=== PATIENT | female | born 1950 | race Caucasian/White ===

== ENCOUNTER 2017-04-11 01:55 | Observation (INO) | payer OTHER ==
[~2017-04-11] VITALS: Ht 167.6 cm; Wt 72.6 kg
--- NOTE | 2017-04-11 02:03 | NUR ---
PT STATES SHE WOKE UP WITH HEARTBURN, WHENSHE GOT UP SHE BECAME DIZZY AND DIAPHORETIC,FEELS BETTER NOW
--- NOTE | 2017-04-11 02:05 | NUR ---
EVALUATED BY DR TSAI
--- NOTE | 2017-04-11 02:06 | ED CARDIAC/CP/PALPITATIONS ---
History of Present Illness General Chief Complaint: Abdominal Pain/Flank Pain Stated Complaint: ABD PAIN Source: patient Exam Limitations: no limitations Vital Signs & Intake/Output Vital Signs & Intake/Output Vital Signs Date Time Temp Pulse Resp B/P B/P Pulse O2 O2 Flow FiO2 Mean Ox Delivery Rate 04/11 0209 97 Room Air 04/11 0205 97.1 60 18 144/68 97 Room Air Allergies Coded Allergies: No Known Allergies (04/11/17) Reconcile Medications No Known Home Medications Triage Note: PT STATES SHE WOKE UP WITH HEARTBURN, WHENSHE GOT UP SHE BECAME DIZZY AND DIAPHORETIC,FEELS BETTER NOW Triage Nurses Notes Reviewed? yes Onset: Gradual Duration: hour(s):, waxing and waning Timing: recent history Quality/Severity: moderate Location: central Radiation: shoulders Activities at Onset: rest Prior Chest Pain/Card Workup: no prior chest pain Modifying Factors: Improves With: rest. Nitro Today/Relief: no nitro taken today Aspirin Today: 325 mg x 1, provided by ED Associated Symptoms: diaphoresis, dizziness, shortness of breath, weakness HPI: 66-year-old woman prior good health presents with three-hour history of diaphoresis substernal chest pressure radiating to both shoulders and up into her neck. She states that when she stood up she got profoundly weak and lightheaded. She never had these symptoms before she has no history of reflux. She notes that she ate a few chips prior to going to bed. Symptoms waxed and waned for a period of 3 hours and did not rhina. She states that at the worst the symptoms were 8 out of 10. At present it is 2 out of 10. She called 911 for further evaluation. Past History Travel History Traveled to [place] past 21 day No Medical History Any Pertinent Medical History? see below for history Neurological: NONE EENT: NONE Cardiovascular: NONE Respiratory: NONE Gastrointestinal: NONE Hepatic: NONE Renal: NONE Musculoskeletal: NONE Psychiatric: NONE Endocrine: NONE Blood Disorders: NONE Cancer(s): NONE Surgical History Surgical History: none Psychosocial History What is your primary language Yoruba Tobacco Use: Never used Family History Hx Contributory? No Review of Systems Review of Systems Constitutional: Reports: no symptoms. EENTM: Reports: no symptoms. Respiratory: Reports: no symptoms. Cardiovascular: Reports: no symptoms. GI: Reports: no symptoms. Genitourinary: Reports: no symptoms. Musculoskeletal: Reports: no symptoms. Skin: Reports: no symptoms. Neurological/Psychological: Reports: no symptoms. Hematologic/Endocrine: Reports: no symptoms. Immunologic/Allergic: Reports: no symptoms. All Other Systems: Reviewed and Negative Physical Exam Physical Exam General Appearance: well developed/nourished, mild distress Head: atraumatic, normal appearance Eyes: Bilateral: normal appearance. Ears, Nose, Throat: normal pharynx, normal ENT inspection Neck: normal inspection, supple, full range of motion Respiratory: normal breath sounds, chest non-tender, no respiratory distress, quiet respiration, lungs clear Cardiovascular: regular rate/rhythm Gastrointestinal: normal bowel sounds, soft, non-tender, no organomegaly Back: normal inspection, normal range of motion Extremities: normal inspection, normal capillary refill, normal range of motion, no edema Neurologic/Psych: no motor/sensory deficits, awake, alert, oriented x 3 Skin: intact, normal color, warm/dry Core Measures ACS in differential dx? Yes ASA ordered for poss ACS? Yes-ordered Severe Sepsis Present: No Septic Shock Present: No Progress Differential Diagnosis: AMI, CHF/pulm edema, musculoskeletal pain, unstable angina Plan of Care: Orders Procedure Date/time Status Nothing by Mouth 04/11 B Active Patient Data 04/11 0352 Active Saline Lock 04/[address] in observation 04/11 0347 Active Misc Message 04/11 0347 Active ED Holding Orders 04/11 0347 Active Vital Signs 04/11 0347 Active Code Status 04/11 0347 Active TROPONIN LEVEL 04/11 0206 Complete PARTIAL THROMBOPLASTIN TIME 04/11 0206 Complete PROTHROMBIN TIME 04/11 0206 Complete D-DIMER 04/11 0206 Complete COMPREHENSIVE METABOLIC PANEL 04/11 0206 Complete CBC WITHOUT DIFFERENTIAL 04/11 0206 Complete EKG 04/11 0157 Active Laboratory Tests 04/11/17 0211: Anion Gap 10, Estimated GFR > 60, BUN/Creatinine Ratio 16.3, Glucose 105 H, Calcium 9.1, Total Bilirubin 0.6, AST 28, ALT 35, Alkaline Phosphatase 136 H, Troponin I < 0.01, Total Protein 6.8, Albumin 4.4, Globulin 2.4, Albumin/ Globulin Ratio 1.8, PT 9.8, INR 0.93, APTT 30, D-Dimer High Sensitivty < 200, CBC w Diff NO MAN DIFF REQ, RBC 4.00 L, MCV 94.6, MCH 31.7 H, RDW 13.6, MPV 8.9, Gran % 46.5, Lymphocytes % 40.2, Monocytes % 10.2 H, Eosinophils % 2.6, Basophils % 0.5, Absolute Granulocytes 2.5, Absolute Lymphocytes 2.2, Absolute Monocytes 0.5, Absolute Eosinophils 0.1, Absolute Basophils 0, PUBS MCHC 33.5 Diagnostic Imaging: Viewed by Me: Radiology Read. Discussed w/RAD: Radiology Read. CXR Impression: no acute abnormality, no infiltrates, normal size heart, normal mediastinum Initial ED EKG: normal axis, normal intervals, normal p-waves, normal QRS complex, normal sinus rhythm Comments: PATIENT: DAHIANA HOUGH PRESENT AGE: 66 PATIENT ACCOUNT NO: [id number] : 50 LOCATION: [facility] ORDERING PHYSICIAN: WILLIAMS TSAI MD SERVICE DATE: 04/11/17 EXAM TYPE: RAD - XRY-PORTABLE CHEST XRAY EXAMINATION: XR PORTABLE CHEST CLINICAL INFORMATION: Chest pain COMPARISON: None TECHNIQUE: Portable frontal view of the chest was obtained. FINDINGS: The lungs are mildly hypoinflated, with bronchovascular crowding suspected at the lung bases. No focal consolidation is seen. No evidence of pneumothorax, pleural effusion, or pulmonary edema. The cardiomediastinal contour is unremarkable. No acute osseous findings are seen. IMPRESSION: No acute cardiopulmonary findings. DICTATED BY: CARIDAD BROWN MD DATE/TIME DICTATED:04/11/17329 [facility] FLOOR:[facility] DATE/TIME TRANSCRIBED:04/11/17329 CONFIDENTIAL, DO NOT COPY WITHOUT APPROPRIATE AUTHORIZATION. <Electronically signed in Other Vendor System> SIGNED BY: CARIDAD BROWN MD 04/11/17333 Departure Departure Disposition: STILL A PATIENT Condition: Stable Clinical Impression Primary Impression: Chest pain Referrals: SATINDER SCHWARTZ MD (PCP/Family) Departure Forms: Customer Survey General Discharge Information Prescriptions: Current Visit Scripts No Known Home Medications Observation Note Spoke With: CHARISSA STUBBS MD Physician Advisor Notified: CANDACE OLVERA DO Place Patient In: Non-ED OBS Care Area Rationale for Observation: My rational for observation is as follows . PT WITH CHEST PAIN, HIGHLY SUSPICIOUS FOR UNSTABLE ANGINE, heart score in moderate zone, with considerable risk for adverse cardiac event. pt merits tele for dysrhythmia, rule out, cards consult in am. pt is chest pain free throughout ED stay. Critical Care Note Critical Care Note Critical Care Time: 30-74 min
--- NOTE | 2017-04-11 02:10 | NUR ---
EKG AND LABS DONE BY [facility]
--- NOTE | 2017-04-11 02:21 | NUR ---
ASA GIVEN ORDERED
[2017-04-11 02:24] LABS: ABSOLUTE BASOPHIL COUNT 0 /CUMM (0.0-0.2); ABSOLUTE EOSINOPHIL COUNT 0.1 /CUMM (0.0-0.7); ABSOLUTE GRANULOCYTE CT 2.5 /CUMM (1.4-6.5); ABSOLUTE LYMPH COUNT 2.2 /CUMM (1.2-3.4); ABSOLUTE MONOCYTE COUNT 0.5 /CUMM (0.10-0.60); BASOPHIL % 0.5 % (0.0-2.0); EOSINOPHIL % 2.6 % (0-5); GRANULOCYTE % 46.5 % (42.2-75.2); HEMATOCRIT 37.8 % (37-47); MEAN CORPUSCULAR HGB 31.7 PG (27.0-31.0); MEAN CORPUSCULAR HGB CONC 33.5 G/DL (33.0-37.0); MEAN CORPUSCULAR VOLUME 94.6 FL (81.0-99.0); MEAN PLATELET VOLUME 8.9 FL (7.4-10.4); PLATELET COUNT 185 /CUMM (130-400); RBC DISTRIBUTION WIDTH 13.6 % (11.5-14.5); WHITE BLOOD CELL COUNT 5.4 /CUMM (4.8-10.8)
[2017-04-11 02:36] LABS: PT 9.8 SEC (9.4-12.5); PTT 30 SEC (25-37)
--- NOTE | 2017-04-11 03:34 | RADIOLOGY REPORT ---
EXAMINATION: XR PORTABLE CHEST CLINICAL INFORMATION: Chest pain COMPARISON: None TECHNIQUE: Portable frontal view of the chest was obtained. FINDINGS: The lungs are mildly hypoinflated, with bronchovascular crowding suspected at the lung bases. No focal consolidation is seen. No evidence of pneumothorax, pleural effusion, or pulmonary edema. The cardiomediastinal contour is unremarkable. No acute osseous findings are seen. IMPRESSION: No acute cardiopulmonary findings.
--- NOTE | 2017-04-11 04:21 | History & Physical ---
MARCIALBrandiJuliaELENOGUERRERO 04/11/17 0420: General Information and HPI MD Statement: I have seen and personally examined DAHIANA HOUGH and documented this H&P. The patient is a 66 year old F who presented with a patient stated chief complaint of heartburn, numbness in bilateral upper extremities Source of Information: patient Exam Limitations: no limitations History of Present Illness: Ms Hough, is a 66-year-old woman who was known to be in her usual state of health until a few hours prior to presentation to the hospital. She has no known significant past medical history. She came to [facility] emergency department, with chief concern of heartburn, diaphoresis, numbness bilateral shoulders 4 hours. As per the patient, she had "heartburn" like symptoms around 11 PM, just before she went to bed. Attributes these symptoms to having excessive potato chips for dinner. A few hours after being asleep, she was woken up with worsening heartburn-like symptoms, located in the center of the chest, associated with nausea. Reported numbness in bilateral shoulders, and diaphoresis that lasted for approximately 10 minutes. Asymptomatic at the time of examination in the ED. Reported similar complaints in the past, a few months ago-and has not seen any manager intern. No chest pain, tightness, palpitations. No shortness of breath, orthopnea/PND. No fever, cough, abdominal pain. No lightheadedness, vision changes were noted. Follows with Dr. Jose regularly, and reports an active lifestyle. No use of alcohol or has a history of smoking. Reported family history of coronary artery disease. Allergies/Medications Allergies: Coded Allergies: No Known Allergies (04/11/17) Home Med list Fluticasone Propionate (Flonase Allergy Relief) 50 MCG/ACTUATION SPRAY.SUSP 1 PUF IH BID ALLERGY (Reported) Loratadine (Claritin) 10 MG TABLET 1 TAB PO DAILY ALLERGY (Reported) Past History Travel History Traveled to [place] past 21 day No Medical History Neurological: NONE EENT: NONE Cardiovascular: NONE Respiratory: NONE Gastrointestinal: NONE Hepatic: NONE Renal: NONE Musculoskeletal: NONE Psychiatric: NONE Endocrine: NONE Blood Disorders: NONE Cancer(s): NONE Surgical History Surgical History: none Past Family/Social History Family History Relations & Conditions if any FATHER (CAD s/p CABG). MOTHER (Alzheimers disease). Functional Ability ADLs Independent: dressing, eating, toileting, bathing. Ambulation: independent IADLs Independent: shopping, housework, finances, food prep, telephone, transportation , medication admin. Employment History Employment Retired Profession/Employer school counselor Review of Systems Review of Systems Constitutional: Reports: see HPI, diaphoresis. Denies: chills, fever. EENTM: Denies: double vision, visual changes. Cardiovascular: Denies: chest pain, edema, orthopena, palpitations, peripheral edema, syncope. Respiratory: Denies: cough, orthopnea. GI: Denies: abdominal pain, melena. Genitourinary: Denies: dysuria. Musculoskeletal: Denies: back pain, joint pain, muscle pain. Skin: Denies: change in skin color. Neurological/Psychological: Denies: anxiety, headache. Hematologic/Endocrine: Denies: bruising. Exam & Diagnostic Data Last 24 Hrs of Vital Signs/I&O Vital Signs Date Time Temp Pulse Resp B/P B/P Pulse O2 O2 Flow FiO2 Mean Ox Delivery Rate 04/11 0441 60 18 118/73 99 Nasal 2.0L Cannula 04/11 0209 97 Room Air 04/11 0205 97.1 60 18 144/68 97 Room Air Intake & Output 04/11 0800 04/11 0000 04/10 1600 Intake Total Output Total Balance Patient 160 lb Weight Physical Exam General Appearance Alert, Oriented X3, Cooperative, No Acute Distress, Mild Distress Skin No Rashes, No Breakdown Skin Temp/Moisture Exam: Warm/Dry Sepsis Skin Exam (color): Normal for Ethnicity HEENT Atraumatic, PERRLA, EOMI Neck Supple, No JVD Lymphatic Cervical nl Cardiovascular Regular Rate, Normal S1, Normal S2, No Murmurs, No JVD Lungs Normal Air Movement Abdomen Normal Bowel Sounds, Soft, No Tenderness Neurological Normal Speech, Strength at 5/5 X4 Ext, Normal Tone, Sensation Intact, Cranial Nerves 3-12 NL Extremities No Clubbing, No Cyanosis, No Edema, Normal Pulses, No Tenderness/ Swelling Vascular Pulses Symmetrical Sepsis Peripheral Pulse Location: Dorsalis Pedis Sepsis Peripheral Pulse Exam: Normal Last 24 Hrs of Labs/Alfred: Laboratory Tests 04/11/17 0211: Anion Gap 10, Estimated GFR > 60, BUN/Creatinine Ratio 16.3, Glucose 105 H, Calcium 9.1, Total Bilirubin 0.6, AST 28, ALT 35, Alkaline Phosphatase 136 H, Troponin I < 0.01, Total Protein 6.8, Albumin 4.4, Globulin 2.4, Albumin/ Globulin Ratio 1.8, PT 9.8, INR 0.93, APTT 30, D-Dimer High Sensitivty < 200, CBC w Diff NO MAN DIFF REQ, RBC 4.00 L, MCV 94.6, MCH 31.7 H, RDW 13.6, MPV 8.9, Gran % 46.5, Lymphocytes % 40.2, Monocytes % 10.2 H, Eosinophils % 2.6, Basophils % 0.5, Absolute Granulocytes 2.5, Absolute Lymphocytes 2.2, Absolute Monocytes 0.5, Absolute Eosinophils 0.1, Absolute Basophils 0, PUBS MCHC 33.5 Diagnostic Data EKG Results Heart rate 62, left axis deviation, first-degree heart block, no ST-T wave changes. CXR Results The lungs are mildly hypoinflated, with bronchovascular crowding suspected at the lung bases. No focal consolidation is seen. No evidence of pneumothorax, pleural effusion, or pulmonary edema. The cardiomediastinal contour is unremarkable. No acute osseous findings are seen. Assessment/Plan Assessment: She is a middle-aged woman with no significant past cardiopulmonary history, is being evaluated for acute chest discomfort associated with diaphoresis and numbness in bilateral shoulders likely from gastroesophageal reflux/myocardial infarction. At the time of admission, vitals-stable, temperature 97.1 pulse rate 60, respiration 18, blood pressure 144/68, pulse ox 97% on room air. Lab findings indicated no leukocytosis, hemoglobin 12.7, platelets 185. Electrolytes are within normal limits-potassium 4.1. Normal renal function, serum creatinine 0.8. PT INR and d-dimer are within normal limits. Liver function AST, ALT normal. Cardiac enzyme-less than 0.01. EKG revealed normal sinus rhythm, left axis deviation ? LAFB, first-degree AV block, with no ST-T wave changes. Radiological findings-chest x-ray-did not reveal any abnormalities. Admission diagnosis: #1 unstable angina/ACS #2 gastroesophageal reflux disease # 3 musculoskeletal Below is the problem list and plan: #1 chest discomfort- history is highly suggestive of reflux, but given the symptoms (chest discomfort, diaphoresis, numbness in bilateral upper extremities ) any cardiac ischemia needs to be ruled out. Serial cardiac enzymes and electrocardiograms to rule out any ischemia. Monitor vitals closely. Aspirin was administered in the ED. Continue aspirin at this time. The patient needs to be monitored (Place in observation) on telemetry for the next 24 hours. Cardiology consult. Defer the decision to start any beta beth, to the environmental conservation professor. Continue a proton pump inhibitor at this time, and if she remains asymptomatic, would have to further investigate as an outpatient. #2 DVT prophylaxis-heparin subcutaneous. As Ranked By This Provider Problem List: 1. Chest pain Core Measures/Miscellaneous Acute Coronary Syndrome ACS Diagnosis: No (rule out ACS) CHILO/ARB For EF <40% No ASA W/I 24hr of admit Yes Beta-Beth W/I 24hrs No (defer the decision to cardiolo) LDL assessed W/I 24 hrs Yes Currently on Statin No Cerebrovascular Accident CVA/TIA Diagnosis: No Congestive Heart Failure CHF Diagnosis: No VTE (View Protocol) VTE Risk Factors: Acute medical illness, Age > 40 No [facility] VTE prophylaxis d/t: No contraindications No VTE Pharm Prophylaxis d/t: No contraindications VTE Diagnosis: No VTE Type: NONE VTE Confirmed by (Test): NONE Sepsis (View Protocol) Severe Sepsis Present: No Septic Shock Septic Shock Present: No Miscellaneous Documentation Attending Case Discussed With: CHARISSA STUBBS MD Primary Care Physician: SATINDER JOSE MD Patient sees these Specialists none Level of Patient Care: Telemetry Observation Initial Note - I have personally examined DAHIANA HOUGH on 04/11/17 at 0527. The disposition of DAHIANA HOUGH is uncertain at this time and before a determination can be made, she requires a period of observation for the following reasons 1. Rule out ACS- follow serial troponins, and electrocardiograms. An monitor for any symptoms, arrhythmias on telemetry. 2. cardiology consult in the a.m. LENO CARPIO 04/11/17 0445: Resident Review Statement Resident Statement: examined this patient, discussed with quality intern, agreed with quality intern, discussed with family, reviewed EMR data (avail), discussed with nursing , discussed with case mgmt, reviewed images, amended to note Other Findings: 66-year-old female with a past medical history presents to the ED with chief complaint of heartburn that started about 11:30 PM. She states that she went to bed around 08/29/1930 and had some heartburn-like symptoms. She woke up around 1 AM with worsening symptoms, felt a little bit nauseous and while getting out of bed, was dizzy, lightheaded, and diaphoretic. Denies any chest pain/ discomfort, shortness of breath, palpitations, headache, blurry vision, weakness in her extermities, abdominal pain, alterations in bowle movements, fever, chills, cough, sore throat. She deneis taking any medications to help releive her symptoms. States that she called her daughter in law, who advised her to come to the ER for further evaluation. SHe states that the numbness lasted for about 10 mins. Her heartburn like symptoms persisted until she presented to [facility] ER and were relieved after she was placed on oxygen. States that she did not have dinner per se, and had snacked on potato chips. Attributed her symptoms to potatoe chips. Last meal was lunch for which she had an eggplant. There is no hx of early cardiac in the family. Father had CAD and underwent PCI and CABG at age of 90. She denies nay ETOH use, reacreational drug use, nicotine dependence including cigarette smoking. 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 Denies taking any medications except for claritin and flonase for allergies. Of note, she had ? JUANITA in the past as she had felt some numbness to her left arm , about 17 years ago, at which time she had seen a environmental conservation professor and was told she had a hole in her heart that was not significant enough to be worried about. Vitals on admission BP: 144/68, HR: 60, RR: 18, A/F saturatinig 97% on RA. On physical exam she is alerta dn oriented x3, and in NAD, sitting comfortably in bed. HEENT revealed PERRLA, EOMI, dry mucous membranes. Examination of neck did not reveal an elevated JVP, no cervical LAD. Cardiovascular exam revealed normal S1, S2, no murmurs, rubs, gallops appreciated. Respiratory exam revealed chest clear to ausculation bilaterally. Abdominal exam was benign with abdomen soft, non-tender, non-distended with normal bowel sound sin all four quadrants. Examinationof lower extremities did not reveal any edema, pulses intact bilaterally. Neuro exa, was grossly unremarkable, with CNII-XII grossly intact, strength 5/5 in all 4 extremties. Labs pertinent for normal white blood cell count of 5400, and H&H of 12.7/37.8, MCV of 94.6 with a platelet count 18 5000. Serum chemistries revealed a sodium of 142, potassium of 4.1, normal anion gap of 10, BUN/creatinine 13 with a creatinine of 0.8. LFTs unremarkable with a total bili of 0.6, AST/ALT of 28/35 , elevated alkaline phosphatase of 136. First set of troponin negative at less than 0.01. INR was 2.93 with a d-dimer of less than 200. Chest x-ray showed lungs are mildly hypoinflated with bronchovascular crowding at the lung bases, no focal consolidation was seen, no evidence of pneumothorax, pleural effusion or pulmonary edema. EKG revealed normal sinus rhythm with a heart rate of 62, LAD, first-degree AV block MN interval of 215, poor R-wave progression In the ER she received full dose of aspirin 325 mg by mouth 1. Assessment and plan Placed under observation on telemetry to rule out ACS. #Atypical chest pain Most likely secondary to GERD versus unstable angina Rule out ACS with troponins and EKG at 8 AM and 2 PM Echocardiogram to r/o any RWMA F/U Cardiology consultation Meanwhile continue her on aspirin 81 mg daily and start her on atorvastatin 40 mg daily, and Protonix 40 mg by mouth daily - DVT prophylaxis Heparin 5000 international units 3 times a day subcutaneous - Diet Heart healthy - CODE STATUS - Full code ENOC GONSALEZ, [facility] 04/11/17 0452: Attending MD Review Statement Attending Statement Attending MD Statement: examined this patient, discuss w/resident/PA/HYBRID POWERTRAIN DEVELOPMENT ENGINEER, agreed w/resident/PA/HYBRID POWERTRAIN DEVELOPMENT ENGINEER Attending Assessment/Plan: 66 yo F with h/o seasonal allergies, is here for evaluation of symptoms of chest discomfort. Last night, patient skipped dinner instead ate potato chips, after which she developed heartburn symptoms around 11 pm. These symptoms got worse around 1 AM, associated with numbness to bilateral arms, nausea, diaphoresis, lightheadedness and according to family she turned pale. She was concerned if this is a heart attack and hence came to the ER for evaluation. Reports family h /o CAD in father although at age 82. Patient does not smoke or consume alcohol. She does have a h/o small PFO (diagnosed by JUANITA 17 yrs ago). Denies undergoing a stress test. VSS. Exam unmarkable. Labs: glucose 105, trop neg. CXR neg. EKG: SR, no acute ST -T changes. 1. Chest discomfort, heartburn symptoms likely related to GERD, less likely ACS. Tele 23 Obs, serial EKG and troponin, aspirin given in ER, obtain echo for EF and valvular disorders, Cardio consult. Add PPI to her regimen. Check lipid panel, TSH, free T4, HbA1c. Outpatient stress test. DVT ppx Hep SC. Full code.
--- NOTE | 2017-04-11 04:30 | NUR ---
HOUSESTAFF HERE TO EVALUATE
[2017-04-11] MEDS ORDERED: FLONASE ALLERG9.9 ML IH (05:25)
[2017-04-11] MEDS ORDERED: CLARITIN10 M1 PO (05:25)
--- NOTE | 2017-04-11 05:41 | NUR ---
PT'S ASSIGNMENT 178
[2017-04-11 08:34] VITALS: BP 100/70
[2017-04-11] MEDS ORDERED: OMEPRAZOLE20 M2 PO (15:19)
--- NOTE | 2017-04-11 15:21 | Patient Discharge Instructions ---
Discharge Instructions General Discharge Information You were seen/treated for: Pain in the neck and,arm, we did serial troponin and EKG does not show any changes. Ruled out acute coronary syndrome Special Instructions: Advised to follow-up with your collect on delivery clerk within a week of discharge for further evaluation including stress test and echocardiogram. Your TSH was elevated to 15 and free T4 0.9. We will advise you to follow-up with PCP/coupon collection clerk for further evaluation and management. Diet Continue normal diet: No Recommended Diet: Heart Healthy Acute Coronary Syndrome Inclusion Criteria At DC or during hospital stay patient has or had the following: ACS DIAGNOSIS No Discharge Core Measures Meds if any: Prescribed or Continued at Discharge Meds if any: NOT Prescribed or Continued at Discharge Congestive Heart Failure Inclusion Criteria At DC or during hospital stay patient has or had the following: CHF DIAGNOSIS No Discharge Core Measures Meds if any: Prescribed or Continued at Discharge Meds if any: NOT Prescribed or Continued at Discharge Cerebrovascular accident Inclusion Criteria At DC or during hospital stay patient has or had the following: CVA/TIA Diagnosis No Discharge Core Measures Meds if any: Prescribed or Continued at Discharge Meds if any: NOT Prescribed or Continued at Discharge Venous thromboembolism Inclusion Criteria VTE Diagnosis No VTE Type NONE VTE Confirmed by (Test) NONE Discharge Core Measures - Per Current guidelines, there needs to be overlap - treatment for the first 5 days of Warfarin therapy. - If discharged on Warfarin prior to 5 days of - overlap therapy, the patient will need to be - assessed for post discharge needs including - *Post discharge parental anticoagulation - *Warfarin and/or parental anticoagulation education - *Follow up date to check INR post discharge At least 5 days overlap therapy as Inpatient No Meds if any: Prescribed or Continued at Discharge Note: Overlap Therapy is Warfarin and Anticoagulant Meds if any: NOT Prescribed or Continued at Discharge
--- NOTE | 2017-04-11 15:25 | Cons- Cardiology ---
General Information and HPI Consulting Request Date of Consult: 04/11/17 Requested By: ENOC GONSALEZ,MALLYALAKSHMI Reason for Consult: "Burning in throat." Source of Information: patient, family, old records Exam Limitations: no limitations History of Present Illness: Ms. Lali Macias is a 66-year-old female migraine and "hole in my heart" (? PFO) who presented to the ED early this morning after she began experiencing "throat burning" at around 11:30 PM while trying to sleep. She initially thought it was a result of her eating potato chips late the night before while visiting with friends, but when it persisted and became more intense ("8/"), was associated with clammy feeling, diaphoresis and bilateral upper arm discomfort she became concerned and contacted family members who then called 911. In the ED she received ASA 81 mg and the discomfort eventually improved and ultimately resolved after being present for 3+ hours. At present she feels improved and denies any further throat burning, or any chest discomfort, palpitations, shortness of breath, etc. She denies any history of coronary, valvular, dysrhythmic/conduction disease, or cardiomyopathy. She also denies any history of hypertension, dyslipidemia, significant tobacco use, diabetes mellitus, or strong family history for coronary artery disease. Allergies/Medications Allergies: Coded Allergies: No Known Allergies (04/11/17) Home Med List: Fluticasone Propionate (Flonase Allergy Relief) 50 MCG/ACTUATION SPRAY.SUSP 1 PUF IH BID ALLERGY (Reported) Loratadine (Claritin) 10 MG TABLET 1 TAB PO DAILY ALLERGY (Reported) Review of Systems Review of Systems: A 14 point system review was obtained and was noncontributory other than for the fact that the patient wears glasses. Past History Travel History Traveled to [place] past 21 day No Medical History Blood Transfusion Hx: No Neurological: NONE EENT: NONE Cardiovascular: NONE Respiratory: NONE Gastrointestinal: NONE Hepatic: NONE Renal: NONE Musculoskeletal: NONE Psychiatric: NONE Endocrine: NONE Blood Disorders: NONE Cancer(s): NONE Surgical History Surgical History: bunionectomies, T & A Family History Relations & Conditions If Any: FATHER (CAD s/p CABG). MOTHER (Alzheimers disease). Psychosocial History Smoking Status: Never Smoked Functional Ability ADLs Independent: dressing, eating, toileting, bathing. Ambulation: independent IADLs Independent: shopping, housework, finances, food prep, telephone, transportation , medication admin. Employment History Employment: Retired Profession/Employer school counselor Exam & Diagnostic Data Vital Signs and I&O Vital Signs Date Time Temp Pulse Resp B/P B/P Pulse O2 O2 Flow FiO2 Mean Ox Delivery Rate 04/11 0834 98.1 57 18 100/70 99 Nasal 2.0L Cannula 04/11 0814 99 Nasal 2.0L Cannula 04/11 0441 60 18 118/73 99 Nasal 2.0L Cannula 04/11 0209 97 Room Air 04/11 0205 97.1 60 18 144/68 97 Room Air Intake & Output 04/11 1600 04/11 0800 04/11 0000 04/10 1600 04/10 0800 04/10 0000 Intake Total 400 240 Output Total Balance 400 240 Intake, Oral 400 240 Patient 160 lb Weight Physical Exam: Well-developed, well-nourished female in no acute distress. Vital signs: See above. HEENT: Normocephalic, atraumatic, EOMI, moist mucous membranes. Neck: No JVD, no bruits. Lungs: Clear to endoscopy bilaterally. Heart: S1, S2 with no murmur, gallop, or rub appreciated. PMI fifth ICS at [facility]. Abdomen: Soft, nontender, positive bowel sounds. Extremities: No cyanosis, clubbing, or edema. Peripheral pulses: Symmetrical and intact. Labs/Alfred Results: Laboratory Tests 04/11 04/11 04/11 1445 0840 0211 Chemistry Sodium (137 - 145 mmol/L) 142 Potassium (3.5 - 5.1 mmol/L) 4.1 Chloride (98 - 107 mmol/L) 105 Carbon Dioxide (22 - 30 mmol/L) 27 Anion Gap (5 - 16) 10 BUN (7 - 17 mg/dL) 13 Creatinine (0.5 - 1.0 mg/dL) 0.8 Estimated GFR (>60 ml/min) > 60 BUN/Creatinine Ratio (7 - 25 %) 16.3 Glucose (65 - 99 mg/dL) 105 H Hemoglobin A1c (4.2 - 5.8 %) Pending Calcium (8.4 - 10.2 mg/dL) 9.1 Total Bilirubin (0.2 - 1.3 mg/dL) 0.6 AST (14 - 36 U/L) 28 ALT (9 - 52 U/L) 35 Alkaline Phosphatase (<127 U/L) 136 H Troponin I (< 0.11 ng/ml) Pending < 0.01 < 0.01 Total Protein (6.3 - 8.2 g/dL) 6.8 Albumin (3.5 - 5.0 g/dL) 4.4 Globulin (1.9 - 4.2 gm/dL) 2.4 Albumin/Globulin Ratio (1.1 - 2.2 %) 1.8 Triglycerides (<150 mg/dL) 54 Cholesterol (<200 MG/DL) 186 LDL Cholesterol, Calc (65 - 129 mg/dL) 101 HDL Cholesterol (40 - 60 mg/dL) 75 H Cholesterol/HDL Ratio (0.00 - 4.23 %) 2 TSH (0.270 - 4.200 uIU/mL) 15.300 H Free T4 (0.78 - 2.44 ng/dL) 0.99 Coagulation PT (9.4 - 12.5 SEC) 9.8 INR (0.90 - 1.19) 0.93 APTT (25 - 37 SEC) 30 D-Dimer High Sensitivty (0 - 243 ng/ml) < 200 Hematology CBC w Diff NO MAN DIFF REQ WBC (4.8 - 10.8 /CUMM) 5.4 RBC (4.20 - 5.40 /CUMM) 4.00 L Hgb (12.0 - 16.0 G/DL) 12.7 Hct (37 - 47 %) 37.8 MCV (81.0 - 99.0 FL) 94.6 MCH (27.0 - 31.0 PG) 31.7 H RDW (11.5 - 14.5 %) 13.6 Plt Count (130 - 400 /CUMM) 185 MPV (7.4 - 10.4 FL) 8.9 Gran % (42.2 - 75.2 %) 46.5 Lymphocytes % (20.5 - 51.1 %) 40.2 Monocytes % (1.7 - 9.3 %) 10.2 H Eosinophils % (0 - 5 %) 2.6 Basophils % (0.0 - 2.0 %) 0.5 Absolute Granulocytes (1.4 - 6.5 /CUMM) 2.5 Absolute Lymphocytes (1.2 - 3.4 /CUMM) 2.2 Absolute Monocytes (0.10 - 0.60 /CUMM) 0.5 Absolute Eosinophils (0.0 - 0.7 /CUMM) 0.1 Absolute Basophils (0.0 - 0.2 /CUMM) 0 PUBS MCHC (33.0 - 37.0 G/DL) 33.5 Diagnostic Data EKG Results (04/11/2017) sinus rhythm, horizontal axis, late precordial transition, and diffuse low voltage. Assessment/Plan Assessment/Plan [id number] w/ hx of ocular migraine and "hole in my heart" (? PFO) discovered by what sounds like a remotely performed transesophageal echocardiogram (JUANITA) who presented to the ED early this morning after she began experiencing "throat burning" at around 11:30 PM while trying to sleep, after having eaten potato chips with friends late the night before w/o any acute ECG changes or evidence of myocardial necrosis by 2 sets of cardiac enzymes. Suspect a GI etiology for her presentation based on the history of present illness, but cannot explain the bilateral upper arm discomfort and would recommend further outpatient evaluation and management. Recommendations: * Agree with observation on telemetry, follow-up troponins, and follow-up electrocardiograms. * Reasonable to schedule for outpatient nuclear stress test to exclude any evidence of ischemia. * Also reasonable to perform an echocardiogram to assess the structural integrity of her heart. * Would be happy to follow-up on an outpatient basis and have the above studies performed. Further recommendations will follow, Thank you. Consult Acknowledgment - Thank you for your consult request.
== END 2017-04-11 16:15 ==
LOC: ERH 01:55 → ERHI 03:47 → 1NO 03:47 → ERHI 04:30 → ENRESERV 05:40 → 1NO 05:53 → ENPENDDIS 15:33 → 1NO 16:15
PROVIDERS: Internal Medicine Infectious Disease; Pediatrics; ADMIT Student in an Organized Health Care Education/Training Program
DX: R07.89 Other chest pain (principal); G43.B0 Ophthalmoplegic migraine, not intractable
CPT/HCPCS: 6020; 93005; 93010; G0378; J1644; J3490